=== PATIENT | female | born 1955 | race Caucasian/White ===

== ENCOUNTER 2018-05-25 08:03 | Day surgery (SDC) | payer MEDICAID ==
[2018-05-21 11:40] LABS: BASOPHILS # (AUTO) 0.1 X10'3 (0-0.2); BASOPHILS % (AUTO) 0.7 % (0-1); EOSINOPHILS # (AUTO) 0.2 X10'3 (0-0.9); EOSINOPHILS % (AUTO) 2.5 % (0-6); LYMPHOCYTES # (AUTO) 2.8 X10'3 (1.1-4.8); LYMPHOCYTES % (AUTO) 36.5 % (21-51); MEAN CORPUSCULAR HEMOGLOBIN 26.1 PG (27.0-31.0); MEAN CORPUSCULAR HGB CONC 31.7 g/dL (33.0-36.5); MEAN CORPUSCULAR VOLUME 82.3 FL (78-98); MEAN PLATELET VOLUME 9.2 FL (7.4-10.4); MONOCYTES # (AUTO) 0.6 X10'3 (0-0.9); MONOCYTES % (AUTO) 7.2 % (2-12); NEUTROPHILS # (AUTO) 4.1 X10'3 (1.8-7.7); NEUTROPHILS % (AUTO) 53.1 % (42-75); PRE OP HEMOGLOBIN 12.4 g/dL (12.0-16.0); PRE OP PLATELET COUNT 239 X10'3 (140-440); RED BLOOD COUNT 4.74 X10'6 (4.20-5.60)
[2018-05-21 12:02] LABS: ALBUMIN 3.3 G/DL (3.4-5.0); ALBUMIN/GLOBULIN RATIO 0.8 (1.1-1.5); ALKALINE PHOSPHATASE 111 IU/L (46-116); BLOOD UREA NITROGEN 24 MG/DL (7-18); BUN/CREATININE RATIO 25.5 (6.6-38.0); CALCIUM 9.5 MG/DL (8.5-10.1); CHLORIDE 104 MMOL/L (99-107); CREATININE 0.94 MG/DL (0.40-0.90); PRE OP ALT 24 U/L (30-65); PRE OP ANION GAP 7 (8-16); PRE OP AST 18 U/L (10-37); PRE OP BILIRUB, TOTAL 0.2 MG/DL (0.0-1.0); PRE OP GLUCOSE 188 MG/DL (70-104); PRE OP POTASSIUM 4.2 MMOL/L (3.4-5.1); PRE OP SODIUM 139 MMOL/L (135-145); TOTAL CARBON DIOXIDE 27.7 MMOL/L (24-32); TOTAL PROTEIN 7.7 G/DL (6.4-8.2); eGFR 60 ML/MIN
[~2018-05-25] VITALS: Ht 152.4 cm; Wt 131.7 kg
[~2018-05-25 08:03] MED LIST: ACET-2119 PO; ATOR40TA PO; BUPIVAcaine/PF 2.5mg/ml (0.25%) 10ml vial ONE; GABA600T13 PO; GLIP10TA11 PO; IBUP-1984 PO; LEVO75TA PO; LIDOcaine 0.5% (5mg/ml) 50ml vial ONE; LOSA50TA3 PO; METF500T PO; PANT-47 PO; cefazolin/dext.iso 2gm/100 ML IV ONE; famotidine 20mg tablet PO ONE; fentaNYL/PF 50MCG/1 ML 2ML syringe IV PRN; hydrALAZINE 20mg/ml inj. IV PRN; labetalol 20mg/4ml (5mg/ml) syringe IV PRN; morphine 4 MG/ML inj SYRINge IV PRN; ondansetron/PF 4mg/2ml inj IV PRN; ringers solution, lacted 1,000 ML IV SCH
[2018-05-25 10:13] VITALS: BP 168/63
[2018-05-25 10:18] VITALS: BP 168/63
[2018-05-25] MEDS ORDERED: propofol inj 20 ML IV ONE (11:50)
[2018-05-25] MEDS ORDERED: labetalol 20mg/4ml (5mg/ml) syringe IV ONE (11:50)
[2018-05-25 11:56] VITALS: BP 134/73
--- NOTE | 2018-05-25 11:56 | NUR ---
Received from OR via [facility] , accompanied by Anesthesiologist SONIDO and report given by Anesthesiolgist. PATIENT WITH 20G PIV IN RIGHT HABNDN RUNNING LR AT 100. DENIES PAIN, LEFT WRIST DRESSING IS CDI. ICE DONNED IN RR. + SCM TO LEFT HAND. Addendum: 05/25/18 at 1215 by Yonathan Mustafa RN, RN Amended: Links added.
[2018-05-25 12:06] VITALS: BP 130/72
[2018-05-25 12:16] VITALS: BP 131/75
--- NOTE | 2018-05-25 12:26 | NUR ---
ALL DC INSTRUCTIONS COVERED. IV OUT WITHOUT COMPLICATIONS. DENIES PAIN. DRESSING TO LEFT WRIST IS CDI. VSS. OUT VIA WHEELCHAIR TO PERSONAL VEHICLE WHERE DAUGHTER BROUGHT HER HOME. Addendum: 05/25/18 at 1230 by Yonathan Mustafa RN, RN Amended: Links added.
== END 2018-05-25 12:26 | disposition home or self-care (01) ==
LOC: PAS 08:03
PROVIDERS: ATTEND Orthopaedic Surgery Hand Surgery
DX: G56.02 Carpal tunnel syndrome, left upper limb (principal); I10 Essential (primary) hypertension; E03.9 Hypothyroidism, unspecified; E11.9 Type 2 diabetes mellitus without complications; M19.90 Unspecified osteoarthritis, unspecified site; E78.00 Pure hypercholesterolemia, unspecified; F32.9 Major depressive disorder, single episode, unspecified; Z79.899 Other long term (current) drug therapy; Z88.8 Allergy status to other drugs, medicaments and biological substances; Z79.84 Long term (current) use of oral hypoglycemic drugs; Z90.49 Acquired absence of other specified parts of digestive tract
CPT/HCPCS: 29848; 36415; 80053; 82948; 85025; 93005; A6449; J0690; J2001; J2704; J3490; A7000; J7120